=== PATIENT | female | born 1990 | race Caucasian/White ===

== ENCOUNTER 2018-11-06 12:46 | Emergency (ER) | payer OTHER ==
--- NOTE | 2018-11-06 12:52 | EDPHY ---
H & P Time Seen by Provider: 11/06/18 12:46 HPI/ROS: CHIEF COMPLAINT: Seizure HISTORY OF PRESENT ILLNESS: Otherwise healthy, works at the lead front desk agent at the [employer] and had a witnessed tonic-clonic seizure today. Main history is from EMS: Co-worker saw her suddenly start clenching and up tonic-clonic motions, on EMS arrival she was confused and appeared postictal. No tongue laceration or incontinence. Patient just has a slight headache now. She does not remember anything between eating lunch and then the paramedics arrival. No recent illness, no stiff neck or fever, no recent head injury or head trauma. REVIEW OF SYSTEMS: Eye: no change in vision ENT: no sore throat Cardiac: No chest pain Pulmonary: no cough or SOB Abdomen: no vomiting, diarrhea, abdominal pain Musculoskeletal: no back pain or neck pain Skin: no rene Neuro: HPI Constitutional:no feve :no urinary symptom A comprehensive 10 point review of systems is otherwise negative aside from elements mentioned in the history of present illness. PAST MEDICAL HISTORY: Negative Family history: Negative for seizures Social history: Negative for drug or alcohol General Appearance:Alert and conversant, cooperative Eyes:No scleral icterus Pupils equal reactive extraocular motion intact. ENT, Mouth: No tongue laceration or abrasion. Respiratory:Normal respiratory effort, breath sounds equal, lungs are clear to auscultation Cardiovascular: Regular rate and rhythm Gastrointestinal: Abdomen is soft and non tender Neurological:Alert, face symmetric, normal motor and sensory in extremities. Not tremulous, speech fluent, normal [id number] and no pronator drift. Skin:Warm and dry, no rashes Musculoskeletal: No spinal tenderness. Psychiatric:Not agitated Emergency Department course/MDM: CT head discussed and consented. CBC chemistry and EKG. 1416: Results discussed, seen by case management for assistance in follow-up, stable for discharge. Standard seizure warnings including no driving given. Normal CT, a CO2 low consistent with seizure. Constitutional: Initial Vital Signs Temperature (C) 36.8 C 11/06/18 12:53 Heart Rate 113 H 11/06/18 12:53 Respiratory Rate 18 11/06/18 12:53 Blood Pressure 142/106 H 11/06/18 12:53 O2 Sat (%) 96 11/06/18 12:53 O2 Delivery Mode Room Air Allergies/Adverse Reactions: No Known Allergies Allergy (Unverified 11/06/18 12:52) Home Medications: Medication Instructions Recorded NK [No Known Home Meds] 11/06/18 Medical Decision Making - Diagnostics Imaging Results: Imaging Impressions Head CT 11/06/18 13:11 Impression: No acute intracranial process. Findings and recommendations discussed with BRYSON BANSAL at 1410 hour, 2018. Imaging: Discussed imaging studies w/ classification clerk Radiologist Differential Diagnosis: Differential diagnosis considered for a seizure including but not limited to electrolyte abnormality, alcohol withdrawal, medication noncompliance, head injury, and breakthrough seizure. - Data Points Laboratory Results: Laboratory Results 11/06/18 12:52 11/06/18 12:52 11/06/18 11/06/18 11/06/18 12:52 12:52 12:52 WBC 7.58 10^3/uL 10^3/uL (3.80-9.50) RBC 4.96 10^6/uL 10^6/uL (4.18-5.33) Hgb 14.7 g/dL g/dL (12.6-16.3) Hct 44.4 % % (38.0-47.0) MCV 89.5 fL fL (81.5-99.8) MCH 29.6 pg pg (27.9-34.1) MCHC 33.1 g/dL g/dL (32.4-36.7) RDW 13.3 % % (11.5-15.2) Plt Count 287 10^3/uL 10^3/uL (150-400) MPV 10.4 fL fL (8.7-11.7) Neut % (Auto) 42.5 % % (39.3-74.2) Lymph % (Auto) 45.9 % H % (15.0-45.0) [place] % (Auto) 7.8 % % (4.5-13.0) Eos % (Auto) 3.3 % % (0.6-7.6) Baso % (Auto) 0.4 % % (0.3-1.7) Nucleat RBC Rel Count 0.0 % % (0.0-0.2) Absolute Neuts (auto) 3.22 10^3/uL 10^3/uL (1.70-6.50) Absolute Lymphs (auto) 3.48 10^3/uL H 10^3/uL (1.00-3.00) Absolute Monos (auto) 0.59 10^3/uL 10^3/uL (0.30-0.80) Absolute Eos (auto) 0.25 10^3/uL 10^3/uL (0.03-0.40) Absolute Basos (auto) 0.03 10^3/uL 10^3/uL (0.02-0.10) Absolute Nucleated RBC 0.00 10^3/uL 10^3/uL (0-0.01) Immature Gran % 0.1 % % (0.0-1.1) Immature Gran # 0.01 10^3/uL 10^3/uL (0.00-0.10) Sodium 139 mEq/L mEq/L (135-145) Potassium 4.3 mEq/L mEq/L (3.5-5.2) Chloride 104 mEq/L mEq/L (97-110) Carbon Dioxide 18 mEq/l L mEq/l (22-31) Anion Gap 17 mEq/L H mEq/L (6-14) BUN 8 mg/dL mg/dL (7-23) Creatinine 0.7 mg/dL mg/dL (0.6-1.0) Estimated GFR > 60 Glucose 88 mg/dL mg/dL (70-100) Calcium 9.8 mg/dL mg/dL (8.5-10.4) Beta HCG, Qual NEGATIVE Departure - Departure Disposition: Home, Routine, Self-Care Clinical Impression: Seizure Condition: Good Instructions: New-Onset Seizure in Adults (ED) Additional Instructions: 1. No driving, dangerous activities such as riding a ski lift, swimming in a pool or other behavior that could put you or someone else at risk in the event of a recurrent seizure. You will need to be cleared by a neurologist to resume these activities. 2. Please return to the ED for recurrent seizure, headache, numbness, weakness, altered mental status or other concerns. 3. Please follow up with neurologist you have been referred to this week to schedule a follow-up appointment. Referrals: Adalberto Flores MD [Medical Doctor] - 5-7 days, call for appt.
[2018-11-06 13:18] LABS: PLATELET COUNT 287 10^3/uL (150-400)
[2018-11-06 15:00] VITALS: BP 116/74
== END 2018-11-06 15:03 | disposition home or self-care (01) ==
DX: R56.9 Unspecified convulsions (principal)

== ENCOUNTER 2018-11-07 05:09 | Observation (INO) | payer OTHER ==
[2018-11-07] MEDS ORDERED: NS 1,000 ML IV ONE (05:25)
--- NOTE | 2018-11-07 05:26 | EDPHY ---
H & P Stated Complaint: tonic clonic seizure approx 15 min @0300 Time Seen by Provider: 11/07/18 05:25 HPI/ROS: HPI CHIEF COMPLAINT: Seizure HISTORY OF PRESENT ILLNESS: 28-year-old female, presents emergency room with a seizure. She was seen here yesterday and had a seizure at work. At that time history emergency room she had a normal CT scan of her head, a bicarb is noted slightly low. She had no further seizure activity in emergency rooms discharged to follow up with Neurology on outpatient basis. She presents to the emergency room tonight with a 2nd seizure. Her and her significant other were in bed, around 3:00 a.m. He heard this loud vocal noise the lasted 15 sec this woke him. She then had denies tonic-clonic seizure with stiffness rolling on her side. He reports lasted 10 min. She was then postictal for 20 min. Slowly improved. He decided come to the emergency room. They got himself stressed and arrived by private vehicle.. The patient does on oropharynx exam bit both sides of her tongue. Past Medical History: Seizure yesterday. Past Surgical History: No recent surgical history Social History: Denies drugs alcohol tobacco. Family History: Noncontributory ROS REVIEW OF SYSTEMS: 10 Systems were reviewed and negative with the exception of the elements mentioned in the history of present illness. Exam Constitutional appears well nontoxic no acute distress, alert and orient x4, triage nursing summary reviewed, vital signs reviewed, awake/alert. Eyes normal conjunctivae and sclera, EOMI, PERRLA. HENT signs of her tongue are both improved, no large tongue laceration, normal inspection, atraumatic, moist mucus membranes, no epistaxis, neck supple/ no meningismus, no raccoon eyes. Respiratory clear to auscultation bilaterally, normal breath sounds, no respiratory distress, no wheezing. Cardiovascular rate normal, regular rhythm, no murmur, no edema, distal pulses normal. Gastrointestinal soft, non-tender, no rebound, no guarding, normal bowel sounds, no distension, no pulsatile mass. Genitourinary no CVA tenderness. Musculoskeletal no midline vertebral tenderness, full range of motion, no calf swelling, no tenderness of extremities, no meningismus, good pulses, neurovascularly intact. Skin pink, warm, & dry, no rash, skin atraumatic. Neurologic awake, alert and oriented x 3, AAOx3, moves all 4 extremities equally, motor intact, sensory intact, CN II-XII intact, normal cerebellar, normal vision, normal speech. Psychiatric normal mood/affect. Heme/Lymph/Immune no lymphadenopathy. Differential Diagnosis: Includes but is not limited to in a particular order seizure, epilepsy. Medical Decision Making: Plan for this patient IV establishment basic blood draw, IV Keppra 1 g, mid to the hospital service for further monitoring. Given 2 seizures in less than 24 hr. Re-evaluation: Spoke with Dr. Mederos, Agrees to admit Admit for Second Seizure. Neuro to see. IV keppra 1000mg ordered.' labs pending. Source: Patient - Personal History LMP (Females 10-55): 8-14 Days Ago Current Tetanus/Diphtheria Vaccine: Unsure - Medical/Surgical History Hx Asthma: No Hx Chronic Respiratory Disease: No Hx Diabetes: No Hx Cardiac Disease: No Hx Renal Disease: No Hx Cirrhosis: No Hx Alcoholism: No Hx HIV/AIDS: No Hx Splenectomy or Spleen Trauma: No Other PMH: Denies - Social History Smoking Status: Never smoked Constitutional: Initial Vital Signs Temperature (C) 36.6 C 11/07/18 05:11 Heart Rate 107 H 11/07/18 05:11 Respiratory Rate 18 11/07/18 05:11 Blood Pressure 101/81 H 11/07/18 05:11 O2 Sat (%) 99 11/07/18 05:11 O2 Delivery Mode Room Air Allergies/Adverse Reactions: No Known Allergies Allergy (Verified 11/07/18 08:29) Home Medications: Medication Instructions Recorded Acetaminophen [Tylenol 325mg (*)] 325 mg PO DAILY PRN 11/07/18 Acetaminophen [Tylenol 325mg (*)] 650 mg PO Q4HRS PRN tab 11/07/18 Unk Control 1 each PO DAILY 11/07/18 levETIRAcetam [Keppra 500 mg (*)] 500 mg PO BID #60 tab 11/07/18 Medical Decision Making - Data Points Medications Given: Discontinued Medications Sodium Chloride (Ns) 1,000 mls @ 0 mls/hr IV EDNOW ONE; Wide Open PRN Reason: Protocol Stop: 11/07/18 05:26 Last Admin: 11/07/18 05:47 Dose: 1,000 mls Levetiracetam (Keppra (Premix)) 100 mls @ 400 mls/hr IV EDNOW ONE Stop: 11/07/18 05:44 Last Admin: 11/07/18 05:57 Dose: 100 mls Ibuprofen (Motrin) 600 mg PO ONCE ONE Stop: 11/07/18 06:22 Last Admin: 11/07/18 06:22 Dose: 600 mg Departure - Departure Disposition: [facility] Acute Clinical Impression: Seizure disorder Condition: Serious
[2018-11-07] MEDS ORDERED: levETIRAcetam 1000MG/NACL 100 ML IV ONE (05:30)
[2018-11-07] MEDS ORDERED: ACETAMINOPHEN 325 MG TAB PO PRN (05:51)
[2018-11-07] MEDS ORDERED: ONDANSETRON 4 MG/2 ML VIAL IVP PRN (05:51)
[2018-11-07] MEDS ORDERED: ONDANSETRON DISINTEGRATING 4 MG TAB PO PRN (05:51)
[2018-11-07 06:02] LABS: PLATELET COUNT 232 10^3/uL (150-400)
--- NOTE | 2018-11-07 06:07 | PDGENHP ---
History and Physical - Chief Complaint Seizure - History of Present Illness 28 yo F presents with second generalized, tonic clonic seizure in the last 24 hours. The patient was brought to the ED yesterday around noon after having a generalized tonic clonic seizure at home. This was her first ever seizure. A CT of the head was unremarkable and she was discharged after a period of observation. Tonight her boyfriend heard her make a sound and then noted GTC seizure activity. The seizure lasted 10-15 minutes and self-resolved. This was followed by a 20 minute post-ictal state. At the time of my evaluation the patient is asymptomatic. She denies hx of prior seizures. She also denies drug use, recent illness, or family history of epilepsy. She is being admitted for observation and neurology consultation. Case discussed with ED physician Dr. Smith; records reviewed and summarized above. History Information - Allergies/Home Medication List Allergies/Adverse Reactions: No Known Allergies Allergy (Unverified 11/06/18 12:52) Home Medications: NK [No Known Home Meds] 11/06/18 [Last Taken Unknown] I have personally reviewed and updated: family history, medical history - Past Medical History no pertinent PMH - Surgical History Reports: no pertinent surgical hx - Family History Additional family history: Denies family hx of epilepsy - Social History Smoking Status: Never smoked Review of Systems Review of Systems: ROS: 10pt was reviewed & negative except for what was stated in HPI & below Physical Exam Physical Exam: Temp Pulse Resp BP Pulse Ox 36.6 C 107 H 18 101/81 H 99 11/07/18 05:11 11/07/18 05:11 11/07/18 05:11 11/07/18 05:11 11/07/18 05:11 Constitutional: no apparent distress, not in pain Eyes: PERRL, EOMI Ears, Nose, Mouth, Throat: moist mucous membranes, no oral mucosal ulcers Cardiovascular: regular rate and rhythym, no murmur, rub, or gallop Respiratory: no respiratory distress, clear to auscultation Gastrointestinal: normoactive bowel sounds, soft, non-tender abdomen Skin: warm, normal color Musculoskeletal: full muscle strength, no muscle tenderness Neurologic: AAOx3, CN II-XII Intact Psychiatric: interacting appropriately, not anxious Lab Data & Imaging Review 11/07/18 05:51 11/07/18 05:51 WBC 8.48 10^3/uL (3.80-9.50) 11/07/18 05:51 RBC 4.83 10^6/uL (4.18-5.33) 11/07/18 05:51 Hgb 14.2 g/dL (12.6-16.3) 11/07/18 05:51 Hct 42.2 % (38.0-47.0) 11/07/18 05:51 MCV 87.4 fL (81.5-99.8) 11/07/18 05:51 MCH 29.4 pg (27.9-34.1) 11/07/18 05:51 MCHC 33.6 g/dL (32.4-36.7) 11/07/18 05:51 RDW 13.2 % (11.5-15.2) 11/07/18 05:51 Plt Count 232 10^3/uL (150-400) 11/07/18 05:51 MPV 9.8 fL (8.7-11.7) 11/07/18 05:51 Neut % (Auto) 72.5 % (39.3-74.2) 11/07/18 05:51 Lymph % (Auto) 17.8 % (15.0-45.0) 11/07/18 05:51 [place] % (Auto) 7.5 % (4.5-13.0) 11/07/18 05:51 Eos % (Auto) 1.5 % (0.6-7.6) 11/07/18 05:51 Baso % (Auto) 0.2 % (0.3-1.7) L 11/07/18 05:51 Nucleat RBC Rel Count 0.0 % (0.0-0.2) 11/07/18 05:51 Absolute Neuts (auto) 6.14 10^3/uL (1.70-6.50) 11/07/18 05:51 Absolute Lymphs (auto) 1.51 10^3/uL (1.00-3.00) 11/07/18 05:51 Absolute Monos (auto) 0.64 10^3/uL (0.30-0.80) 11/07/18 05:51 Absolute Eos (auto) 0.13 10^3/uL (0.03-0.40) 11/07/18 05:51 Absolute Basos (auto) 0.02 10^3/uL (0.02-0.10) 11/07/18 05:51 Absolute Nucleated RBC 0.00 10^3/uL (0-0.01) 11/07/18 05:51 Immature Gran % 0.5 % (0.0-1.1) 11/07/18 05:51 Immature Gran # 0.04 10^3/uL (0.00-0.10) 11/07/18 05:51 Assessment & Plan Assessment: 28 yo F w/ no PMHx presents with new seizures, suffering 2 generalized tonic clonic events in the last 24 hours. Plan: 1. New generalized, tonic clonic seizures - Two events in the last 24 hours with no prior history. She denies recent illness, drug use, or stressors. She has been sleeping and eating well. She denies family hx of epilepsy. CTH ( personally reviewed/interpreted) performed yesterday did not demonstrate any acute abnormalities. - Admit for observation - S/p Keppra 1 g IV - Neurology consultation placed - Seizure precautions Diet - Regular Code - Full Ppx - Low risk, ambulate TID Dispo - Admit under observation status
[2018-11-07] MEDS ORDERED: IBUPROFEN 600 MG TAB PO ONE ×2 (06:20→06:21)
--- NOTE | 2018-11-07 08:32 | HOSPPROG ---
Hospitalist Progress Note Assessment/Plan: 28 yo F w/ no PMHx presents with new seizures, suffering 2 generalized tonic clonic events in the last 24 hours. First encounter, chart reviewed. * New generalized, tonic clonic seizures - Two events in the last 24 hours with no prior history - iv keppra - seizure precautions *plan: met w Johana jose Flores, will get an MRI today and further evaluate. Subjective: Johana has a headache and her back is sore. Objective: Vital Signs Temp Pulse Resp BP Pulse Ox 36.7 C 90 16 111/63 98 11/07/18 07:38 11/07/18 07:38 11/07/18 07:38 11/07/18 07:38 11/07/18 07:38 Laboratory Results 11/07/18 05:51 11/07/18 05:51 11/06/18 11/07/18 11/08/18 05:59 05:59 05:59 Intake Total 1250 Balance 1250 - Physical Exam Constitutional: no apparent distress, appears nourished Eyes: PERRL Ears, Nose, Mouth, Throat: hearing normal Respiratory: no respiratory distress Skin: warm Musculoskeletal: full muscle strength Neurologic: AAOx3 Psychiatric: interacting appropriately, not anxious, not encephalopathic ICD10 Worksheet Patient Problems: Problems Problem Status Onset Seizure disorder Acute
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
[2018-11-07 11:56] VITALS: BP 97/50
[2018-11-07] MEDS ORDERED: GADOBUTROL 10 ML VIAL IVP ONE (13:41)
--- NOTE | 2018-11-07 16:22 | ASMTLACE ---
LACE Length of stay for Answers: Less than 1 day current admission Acuity / Level of Answers: No Care: Did the patient have an inpatient admission? Comorbidities - select Answers: Other Notes: seizures all that apply # of Emergency department Answers: 1-2 visits in the last 6 months Score: 2 Date Signed: 11/07/2018 04:22 PM Electronically Signed By:Meghana Finney RN
--- NOTE | 2018-11-07 16:28 | ASMTCMCOM ---
CM Note CM Note Notes: Met with pt, she was admitted for 2 seizures in 24hrs. Unfortunately she is over income for Medicaid, [employer] coupon given along with rx for Keppra. Pt understands the importance of taking the prescription and will f/u with neurology. Pt will dc home w/support of boyfriend, CM availble for any changes. DC Plan: Independent Date Signed: 11/07/2018 04:28 PM Electronically Signed By:Meghana Finney RN
--- NOTE | 2018-11-07 17:22 | GDS ---
[f rep st] DISCHARGE SUMMARY DISCHARGE DIAGNOSIS: New generalized tonic-clonic seizures. CONSULTATION: Dr. Adalberto Flores. Briefly, Johana Guerrero is a very sweet 28-year-old female who has no history of seizures. She has had 2 generalized seizures in approximately the past 24 hours. 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 She reportedly had generalized tonic-clonic seizures. Then she had a 2nd event where her boyfriend heard her making some sounds in her sleep and then woke up. She was having a generalized convulsion. She bit her tongue and she felt some soreness in her back. She is also having some headache. She was seen and evaluated by Dr. Adalberto Flores. She had an MRI of her brain performed with and without contrast. This did not show anything acute. The plan is for her to have an outpatient EEG. There is no clear cause why she had has had 2 seizures. I also explained to her no driving for the next 3 months. No bathing or swimming alone unless someone is with her. She understands this. She will be discharged home with her boyfriend and follow up with Dr. Flores in the outpatient setting. CONDITION AT DISCHARGE: Stable. VITAL SIGNS: Blood pressure is 97/50, heart rate is 73, respiratory rate 15, O2 sats on room air 94% , temperature is 36.8 Celsius. MEDICATIONS AT DISCHARGE: Please see the EMR. DISCHARGE INSTRUCTIONS: 1. To take the Keppra as instructed. The patient does not have insurance, so we have given her a go od prescription card which will make this very affordable. 2. No driving for the next 3 months. 3. No swimming or bathing or go up any ladders. No alcohol. 4. Should start the Keppra tomorrow morning. 5. To see Dr. Flores next week for an EEG to evaluate for her seizures. /[id number]/MODL
== END 2018-11-07 17:37 | disposition home or self-care (01) ==
LOC: F3N 06:30
PROVIDERS: ADMIT Student in an Organized Health Care Education/Training Program; ATTEND Internal Medicine
DX: G40.409 Other generalized epilepsy and epileptic syndromes, not intractable, without status epilepticus (principal)
CPT/HCPCS: 96365; A9585; G0378; J1953